=== PATIENT | female | born 2000 | race Caucasian/White ===

== ENCOUNTER 2020-10-25 11:32 | Inpatient (IN) | payer OTHER, SELFPAY ==
[2020-10-25] MEDS ORDERED: Acetaminophen 325 MG TAB PO PRN (15:30)
[2020-10-25] MEDS ORDERED: Senokot S 8.6-50 MG TAB PO PRN (15:30)
[2020-10-25] MEDS ORDERED: Ondansetron PF 4 MG/2 ML Vial IVP PRN (15:30)
[2020-10-25] MEDS ORDERED: Morphine 4 MG/ML VIAL SLOW IVP PRN (15:33)
[2020-10-25] MEDS ORDERED: Ketorolac Tromethamine 30 MG/ML VIAL IVP SCH (16:50)
[2020-10-25 16:58] VITALS: BMI 24.3
[2020-10-25] MEDS: cefTRIAXone\\ROCEPHIN 1 GM in Sodium Chloride 0.9% 100 ML IVPB SCH (17:51)
[2020-10-25] MEDS: Sodium Chloride 0.9% 1,000 ML IV SCH (17:52)
[2020-10-25 19:17] LABS: Bacteria/HPF 1+ HPF (None Seen); Bilirubin Negative (Negative); Blood, Urine Trace (Negative); Clarity Clear (Clear); Glucose, Urine (Dipstick) Normal (Negative); Ketone, Urine 20 mg/dL (Negative); Leukocyte 25 Leu/uL (Negative); Nitrite Negative (Negative); Protein, Urine (Dipstick) Negative (Neg-Trace); RBC/HPF 0-3 HPF (0-3); Specific Gravity, Urine 1.013 (1.002-1.036); Squamous Epithelial 0-3 HPF (0-3); Urobilinogen Normal mg/dL (Less than 2); pH, Urine 5.5 (5.0-9.0)
[2020-10-25] MEDS: oxyCODONE/Acetaminophen 5 mg/325 mg Tablet PO PRN (19:17)
[2020-10-25] MEDS ORDERED: Ketorolac Tromethamine 30 MG/ML VIAL IVP PRN (22:00)
[2020-10-26] MEDS: Sodium Chloride 0.9% 1,000 ML IV SCH (02:27)
[2020-10-26] MEDS: oxyCODONE/Acetaminophen 5 mg/325 mg Tablet PO PRN (06:00)
[2020-10-26 06:51] LABS: #Eosinphils 0.1 thou/uL (0.0-0.7); #Lymphocytes 1.1 thou/uL (1.20-3.40); #Monocytes 1.2 thou/uL (0.11-0.59); #Neutrophils 13.5 thou/uL (1.40-6.50); %Basophils 0.1 % (0.0-1.0); %Eosinophils 0.3 % (0.0-10.0); %Lymphocytes 6.8 % (21.0-51.0); %Monocytes 7.4 % (0.0-10.0); %Neutrophils 85.4 % (42.0-75.0); Hemoglobin 11.9 g/dL (12.0-16.0); Mean Corpuscular HGB CONC 32.9 g/dL (32.0-36.0); Mean Corpuscular Hemoglobin 29.3 pg (27.0-31.0); Mean Platelet Volume 7.6 fL (7.4-10.4); Platelet Count 224 thou/uL (130-400); RBC Distribution Width 11.2 % (11.5-14.5); Red Blood Cell (RBC) Count 4.05 mill/uL (4.20-5.40); White Blood Cell (WBC) Count 15.8 thou/uL (4.8-10.8)
[2020-10-26 07:14] LABS: ALT (SGPT) 13 U/L (8-55); AST (SGOT) 17 U/L (5-34); Albumin 3.3 g/dL (3.5-5.0); Alkaline Phosphatase 63 U/L (40-110); Anion Gap 13 mmol/L (10-20); BUN (Urea Nitrogen) 9 mg/dL (7.0-18.7); Bilirubin, Total 0.5 mg/dL (0.2-1.2); Calc. Creatinine Clearance 128 mL/min (70-130); Carbon Dioxide 23 mmol/L (22-29); Chloride 104 mmol/L (98-107); Globulin 2.6 g/dL (2.4-3.5); Glucose 85 mg/dL (70-105); Potassium 3.7 mmol/L (3.5-5.1); Protein, Total 5.9 g/dL (6.0-8.3); Sodium 136 mmol/L (136-145)
[2020-10-26] MEDS ORDERED: Enoxaparin Sodium 40 MG/0.4 ML SYRINGE SC SCH (09:00)
[2020-10-26] MEDS: Ketorolac Tromethamine 30 MG/ML VIAL IVP SCH ×2 (15:45→20:15)
[2020-10-26] MEDS: cefTRIAXone\\ROCEPHIN 1 GM in Sodium Chloride 0.9% 100 ML IVPB SCH (16:56)
[2020-10-27] MEDS: oxyCODONE/Acetaminophen 5 mg/325 mg Tablet PO PRN (00:32)
[2020-10-27] MEDS ORDERED: Melatonin 3 MG TAB PO SCH (00:45)
[2020-10-27] MEDS: Ketorolac Tromethamine 30 MG/ML VIAL IVP SCH ×2 (03:59→08:03)
[2020-10-27 06:48] LABS: #Lymphocytes 1.4 thou/uL (1.20-3.40); #Monocytes 1.1 thou/uL (0.11-0.59); #Neutrophils 8.8 thou/uL (1.40-6.50); %Basophils 0.3 % (0.0-1.0); %Eosinophils 0.3 % (0.0-10.0); %Lymphocytes 12.4 % (21.0-51.0); %Neutrophils 77.1 % (42.0-75.0); Hemoglobin 10.5 g/dL (12.0-16.0); Mean Corpuscular HGB CONC 34.1 g/dL (32.0-36.0); Mean Corpuscular Hemoglobin 30.2 pg (27.0-31.0); Mean Corpuscular Volume 88.5 fL (78.0-98.0); Mean Platelet Volume 7.5 fL (7.4-10.4); Platelet Count 219 thou/uL (130-400); RBC Distribution Width 11.1 % (11.5-14.5); Red Blood Cell (RBC) Count 3.49 mill/uL (4.20-5.40); White Blood Cell (WBC) Count 11.4 thou/uL (4.8-10.8)
[2020-10-27 06:55] LABS: Anion Gap 10 mmol/L (10-20); BUN (Urea Nitrogen) 7 mg/dL (7.0-18.7); Calc. Creatinine Clearance 141 mL/min (70-130); Calcium 8.6 mg/dL (7.8-10.44); Carbon Dioxide 24 mmol/L (22-29); Chloride 105 mmol/L (98-107); Glucose 101 mg/dL (70-105); Potassium 3.4 mmol/L (3.5-5.1); Sodium 136 mmol/L (136-145)
[2020-10-27 07:50] VITALS: BP 100/68
[2020-10-27 11:32] VITALS: TEMP 98
[2020-10-27] MEDS ORDERED: Ketorolac Tromethamine 30 MG/ML VIAL IVP PRN (14:38)
== END 2020-10-27 11:47 | disposition home or self-care (01) | DRG 872 ==
LOC: T4-B 13:45 → OBSVTOIN 15:30
PROVIDERS: ADMIT Internal Medicine; ATTEND Family Medicine
DX: A41.9 Sepsis, unspecified organism (principal); N12 Tubulo-interstitial nephritis, not specified as acute or chronic; M25.511 Pain in right shoulder; N83.201 Unspecified ovarian cyst, right side; N28.1 Cyst of kidney, acquired
CPT/HCPCS: 36415; 80048; 80053; 81001; 85025; 87040; 87086; J0696; J1650; J1885; J3490